=== PATIENT | female | born 1955 | race Caucasian/White ===

== ENCOUNTER → 2021-03-13 | Outpatient (CLI) | payer MEDICARE, OTHER ==
[~2021-03-13] MED LIST: ALDACTONE50 MG PO; ASPIR 8181 MG PO; C-PAP; CARDIZEM CD240 MG PO; CLOTRIMAZOLE10 MG PO; CYMBALTA60 MG PO; DALIRESP500 MCG PO; FARXIGA5 MG PO; FOSAMAX70 MG PO; IPRAT-ALBUT 0.5-3 ML INH; KLONOPIN TAB 00.5 MG PO; KLOR-CON 1010 MEQ PO; LASIX20 MG PO; LEVAQUIN500 MG PO; LIORESAL TAB 1010 MG PO; LIPITOR TAB 1010 MG PO; LOPRESSOR50 MG PO; LORTAB 5-325 M1 EACH PO; NEURONTIN 400400 MG PO; NOVOLOG100 UNIT/1 SQ; OXYGEN; PREVACID 30 MG30 MG PO; PREVACID30 MG PO; PROZAC40 MG PO; REMERON30 MG PO; SINGULAIR10 MG PO; SPIRIVA18 MCG INH; SYMBICORT 160-1 INHA INH; TOPROL XL 50 MG50 MG PO; VALTREX500 MG PO; VENTOLIN HFA 66.7 GM INH
== END ==
LOC: EXRD 02-20 09:30
DX: M81.0 Age-related osteoporosis without current pathological fracture (principal); M85.88 Other specified disorders of bone density and structure, other site
CPT/HCPCS: 77080